=== PATIENT | female | born 1945 | race Caucasian/White ===

== ENCOUNTER 2023-04-21 12:32 | Outpatient (REF) | payer SELFPAY ==
[2023-04-21 13:31] LABS: Anion Gap 7.6; Calcium 10.6 mg/dL (8.5-10.1); Carbon Dioxide 28.4 mmol/L (21.0-32.0); Chloride 107 mmol/L (98-107); Estimated GFR (African America >60 (>=60); Estimated GFR (Non-African Ame >60 (>=60); Glucose 102 mg/dL (74-106); Sodium 139 mmol/L (136-145)
== END 2023-04-21 12:33 | disposition home or self-care (01) ==
LOC: LAB 12:32
DX: E87.6 Hypokalemia (principal); I10 Essential (primary) hypertension
CPT/HCPCS: 36415; 80048